=== PATIENT | male | born 1965 | race Caucasian/White ===

== ENCOUNTER 2016-12-08 08:48 | Inpatient (IN) | payer MEDICAID ==
[2016-12-08] VITALS (13 sets, daily range): BP systolic 117–181; BP diastolic 60–91; PULSE 87–114; RESP 18–20; Ht 167.6 cm; Wt 98.5 kg
[~2016-12-08] VITALS: Ht 167.6 cm; Wt 98.5 kg
[2016-12-08] MEDS ORDERED: NITROGLYCERIN 2% 1 GM OINT PKT TD STA (09:08)
[2016-12-08] MEDS ORDERED: FUROSEMIDE 40 MG INJ IV STA (09:08)
[2016-12-08] MEDS ORDERED: ALBUTEROL 0.5% (NEB) 2.5 MG/0.5 ML AMP INH STA (09:08)
[2016-12-08 09:35] LABS: BASOPHILS % 0.4 % (0.0-2.0); EOSINOPHILS # 0.1 10^3/ul (0.0-0.5); EOSINOPHILS % 1.5 % (0.0-7.0); HEMATOCRIT 30.8 % (42.0-52.0); HEMOGLOBIN 10.6 g/dl (14.0-18.0); LYMPHOCYTES # 0.8 10^3/ul (0.8-2.9); LYMPHOCYTES % 12.5 % (15.0-51.0); MEAN CORPUSCULAR HEMOGLOBIN 30.2 pg (29.0-33.0); MEAN CORPUSCULAR HGB CONC 34.4 g/dl (32.0-37.0); MEAN CORPUSCULAR VOLUME 87.7 fl (82.0-101.0); MEAN PLATELET VOLUME 9.4 fl (7.4-10.4); MONOCYTE # 0.5 10^3/ul (0.3-0.9); MONOCYTES % 6.8 % (0.0-11.0); NEUTROPHIL # 5.3 10^3/ul (1.6-7.5); NEUTROPHILS % 78.7 % (39.0-77.0); PLATELET COUNT 201 10^3/UL (140-415); RED BLOOD COUNT 3.51 10^6/ul (4.70-6.10); RED CELL DISTRIBUTION WIDTH 13.2 % (11.5-14.5); WHITE BLOOD COUNT 6.7 10^3/ul (4.8-10.8)
--- NOTE | 2016-12-08 09:36 | RADRPT ---
PROCEDURE: Chest Radiograph. CLINICAL INDICATION: Shortness of breath TECHNIQUE: Single frontal chest radiograph. COMPARISON: None available FINDINGS: The heart is magnified and may be enlarged. There is mild central vascular congestion. Interstitia l opacities are nonspecific and may represent pulmonary edema, chronic lung changes, or interstitial infiltrates. No infiltrate or effusion is seen. The bones are intact. IMPRESSION: 1. Mild central vascular congestion and possible pulmonary edema. Recommend correlation with CHF. Interstitial infiltrates could also have this appearance. RPTAT: KK .Malick Levy MD, MD Date Time Electronically viewed and signed by .Malick Levy MD, MD on 12/08/2016 09:36 .B/
[2016-12-08 09:53] LABS: INR 0.98; PARTIAL THROMBOPLASTIN TIME 29.5 Sec (25.0-35.0)
[2016-12-08 09:58] LABS: CALCIUM 8.2 mg/dl (8.4-10.2); CREATININE 9.36 mg/dl (0.61-1.24); POTASSIUM 5.4 mmol/L (3.5-5.1)
--- NOTE | 2016-12-08 10:02 | ERA ---
ER Documentation Chief Complaint Date/Time DATE: 12/08/16 TIME: 10:02 Chief Complaint SOB, DIALYSIS YESTERDAY HPI 51-year-old male diabetic, hypertensive, hyperlipidemic with history of end- stage renal disease on dialysis, M/W/F, dialyzed yesterday ambulatory to the ED complaining of increased shortness of breath, orthopnea and exertional dyspnea since yesterday. Mild, chronic lower extremity swelling but no calf pain. Denies chest pain or palpitations. No cough or hemoptysis. No abdominal pain, nausea or vomiting. No fevers or chills. Campus Supervisor: Dr Bauer. ROS All systems reviewed and are negative except as per history of present illness. Medications Home Meds Reported Medications Furosemide* (Furosemide*) 20 Mg Tablet, 20 MG PO BID, #30 TAB 12/08/16 Gabapentin* (Gabapentin*) 100 Mg Capsule, 100 MG PO BID, #90 CAP 12/08/16 Lisinopril* (Lisinopril*) 20 Mg Tablet, 20 MG PO DAILY, #30 TAB 12/08/16 Sevelamer Hcl* (Renagel*) 800 Mg Tablet, 800 MG PO WITH MEALS, TAB 12/08/16 Calcium Acetate (Calcium Acetate) 667 Mg Tablet, 667 MG PO WITH MEALS, #30 TAB 12/08/16 Calcium Acetate* (Calcium Acetate*) 667 Mg Capsule, 1334 MG PO WITH MEALS, #60 CAP 12/08/16 Nifedipine* (Nifedipine ER*) 30 Mg Tablet.sa, 30 MG PO DAILY, TAB.SA 12/08/16 Metoprolol Succinate* (Toprol XL*) 25 Mg Tab.sr.24h, 25 MG PO BID, #30 TAB 12/08/16 Allergies Allergies: Coded Allergies: No Known Allergy (Unverified , 12/08/16) PMhx/Soc Reviewed in chart. As per HPI. History of Surgery: Yes (AV shunt left upper extremity) Hx Neurological Disorder: No Hx Respiratory Disorders: No Hx Cardiac Disorders: Yes (Hypertension) Hx Psychiatric Problems: No Hx Miscellaneous Medical Probl: Yes (End-stage renal disease on dialysis, diabetes, dyslipidemia) Hx Alcohol Use: No Hx Substance Use: No Hx Tobacco Use: No Smoking Status: Never smoker FmHx Diabetes but no stroke or cancer Physical Exam Vitals Vital Signs Date Time Temp Pulse Resp B/P Pulse Ox O2 Delivery O2 Flow Rate FiO2 12/08/16 11:04 82 18 174/86 96 Room Air 12/08/16 11:00 114 12/08/16 11:00 112 18 12/08/16 09:36 89 18 96 21 12/08/16 09:05 86 18 192/95 92 Room Air 12/08/16 08:50 98.1 86 18 203/93 92 Physical Exam Const: Alert, moderate respiratory distress Head: Atraumatic Eyes: Normal Conjunctiva ENT: Normal External Ears, Nose and Mouth. Neck: Full range of motion. JVD. Resp: Breath sounds diminished with crackles at the bases. Cardio: Regular rate and rhythm, no murmurs Abd: Soft, non tender, mild distention. Normal bowel sounds. No rebound or guarding. No masses or abnormal pulsations. Skin: No petechiae or rashes Back: No midline or flank tenderness Ext: No cyanosis. 1+ pitting edema bilateral lower extremities Neur: Awake and alert. No focal deficit observed Psych: Normal Mood and Affect Result Diagram: 12/08/1623 12/08/16 0923 Results 24 hrs Laboratory Tests Test 12/08/16 09:23 White Blood Count 6.710^3/ul Red Blood Count 3.5110^6/ul Hemoglobin 10.6g/dl Hematocrit 30.8% Mean Corpuscular Volume 87.7fl Mean Corpuscular Hemoglobin 30.2pg Mean Corpuscular Hemoglobin Concent 34.4g/dl Red Cell Distribution Width 13.2% Platelet Count 71154^3/UL Mean Platelet Volume 9.4fl Neutrophils % 78.7% Lymphocytes % 12.5% Monocytes % 6.8% Eosinophils % 1.5% Basophils % 0.4% Nucleated Red Blood Cells % 0.0/100WBC Neutrophils # 5.310^3/ul Lymphocytes # 0.810^3/ul Monocytes # 0.510^3/ul Eosinophils # 0.110^3/ul Basophils # 0.010^3/ul Nucleated Red Blood Cells # 0.010^3/ul Prothrombin Time 13.0Sec Prothrombin Time Ratio 1.0 INR International Normalized Ratio 0.98 Activated Partial Thromboplast Time 29.5Sec Sodium Level 138mmol/L Potassium Level 5.4mmol/L Chloride Level 88mmol/L Carbon Dioxide Level 32mmol/L Anion Gap 23 Blood Urea Nitrogen 37mg/dl Creatinine 9.36mg/dl Glucose Level 403mg/dl Hemoglobin A1c 12.3% Calcium Level 8.2mg/dl Troponin I 0.016ng/ml Current Medications Medications (Trade) Dose Ordered Sig/Inna Route PRN Reason Start Time Stop Time Status Last Admin Dose Admin Albuterol (Proventil 0.5% (Neb)) 15 mg ONCE STAT INH 12/08/16 09:08 12/08/16 09:16 DC 12/08/16 09:32 Nitroglycerin (Nitroglycerin 2% Oint) 1 inch ONCE STAT TD 12/08/16 09:08 12/08/16 09:16 DC 12/08/16 09:32 Furosemide (Lasix) 40 mg ONCE STAT IV 12/08/16 09:08 12/08/16 09:16 DC 12/08/16 09:32 Captopril (Capoten) 12.5 mg ONCE STAT PO 12/08/16 09:08 12/08/16 09:16 DC 12/08/16 10:28 Ondansetron HCl (Zofran Inj) 4 mg ER BRIDGE PRN IV NAUSEA AND/OR VOMITING 12/08/16 10:30 12/08/16 11:18 DC Acetaminophen (Tylenol Tab) 650 mg ER BRIDGE PRN PO MILD PAIN/FEVER 12/08/16 10:30 12/08/16 11:18 DC Insulin Human Lispro (Humalog) 10 unit ONCE STAT SC 12/08/16 10:34 12/08/16 10:35 DC IV Flush (NS 3 ml) 3 ml PER PROTOCOL IV 12/08/16 11:00 Ondansetron HCl (Zofran Inj) 4 mg Q6H PRN IV NAUSEA AND/OR VOMITING 12/08/16 11:00 Acetaminophen (Tylenol Tab) 650 mg Q6H PRN PO PAIN LEVEL 1-3 OR FEVER 12/08/16 11:00 Acetaminophen (Tylenol Supp) 650 mg Q6H PRN [place] PAIN LEVEL 1-3 OR FEVER 12/08/16 11:00 Acetaminophen/ Hydrocodone Bitart ([place] (5/325)) 1 tab Q6H PRN PO MODERATE PAIN LEVEL 4-6 12/08/16 11:00 Acetaminophen/ Hydrocodone Bitart ([place] (5/325)) 2 tab Q6H PRN PO SEVERE PAIN LEVEL 7-10 12/08/16 11:00 Morphine Sulfate (morphine) 2 mg Q4H PRN IV SEVERE PAIN LEVEL 7-10 12/08/16 11:00 Docusate Sodium (Colace) 100 mg Q12H PRN PO CONSTIPATION 12/08/16 11:00 Magnesium Hydroxide (Milk Of Mag) 30 ml DAILY PRN PO CONSTIPATION 12/08/16 11:00 Bisacodyl (Dulcolax Supp) 10 mg DAILY PRN [place] CONSTIPATION 12/08/16 11:00 Miscellaneous Information (* Miscellaneous Pharmacy Order) Discontinue current oral sulfonylur... ONCE ONCE XX 12/08/16 11:00 12/08/16 11:10 DC Insulin Glargine (Lantus) 20 unit DAILY@08 SC 12/08/16 11:00 Miscellaneous Information (* Miscellaneous Pharmacy Order) HYPOGLYCEMIA PROTOCOL w... ONCE ONCE XX 12/08/16 11:00 12/08/16 11:11 DC Miscellaneous Information (* Miscellaneous Pharmacy Order) Discontinue all previ... ONCE ONCE XX 12/08/16 11:00 12/08/16 11:11 DC EKG: Time: 09:32. Sinus rhythm. Ventricular rate 80, normal NM and QRS intervals. No acute ST segment elevation or depression. No axis deviation or ectopy. EP Impression: Normal EKG IMAGING: PROCEDURE: Chest Radiograph. CLINICAL INDICATION: Shortness of breath TECHNIQUE: Single frontal chest radiograph. COMPARISON: None available FINDINGS: The heart is magnified and may be enlarged. There is mild central vascular congestion. Interstitial opacities are nonspecific and may represent pulmonary edema, chronic lung changes, or interstitial infiltrates. No infiltrate or effusion is seen. The bones are intact. IMPRESSION: 1. Mild central vascular congestion and possible pulmonary edema. Recommend correlation with CHF. Interstitial infiltrates could also have this appearance. RPTAT: KK .Malick Levy MD, Date Time Electronically viewed and signed by .Malick Levy MD, on 2016 09:36 .B/ Procedures/MDM DOCUMENTS REVIEWED: ED nurse, no prior records available ED COURSE: Supplemental oxygen. Nitropaste 1 inch. Captopril 12.5 mg orally. Lasix 40 mg IV. Nebulized albuterol 15 mg. NovoLog 10 mg subcq REEXAMINATION/REEVALUATION: Time: 10:15. Doing well. No dyspnea at rest. MEDICAL DECISION MAKIN-year-old male diabetic, hypertensive, hyperlipidemic with history of end-stage renal disease on dialysis, M/W/F, dialyzed yesterday ambulatory to the ED complaining of increased shortness of breath, orthopnea and exertional dyspnea since yesterday. Patient presents with pulmonary vascular congestion and volume overload despite being dialyzed yesterday. Preload, afterload reduction and diuretics given. Hyperglycemia with diabetes out of control but no DKA treated with subcutaneous insulin. Hyperkalemia without EKG changes treated with nebulized beta agonist. Chronic anemia. Patient will be admitted to telemetry for emergent dialysis, further evaluation and management. Critical Care Statement: Due to the high probability of sudden clinically significant hemodynamic, cardiovascular and neurologic deterioration, this patient with acute dyspnea due to volume overload and pulmonary edema, hyperkalemia and diabetes out of control required the highest level of my preparedness for sudden, emergent intervention. I provided critical care services, which included extensive review of previous medical records, medication orders, frequent reevaluations of the patients condition and response to treatment, ordering of tests, interpretation of relevant clinical data, and discussing the case with the admitting physician, Dr Coronado. Total critical care time associated with the care of this patient, not including other separately reportable procedures: 35 minutes. Counseled patient and family regarding diagnosis, diagnostic results and plan for admission. CALLS/CONSULTS: Time 10:10, Dr. Coronado, Recommends admission to telemetry for urgent dialysis. PATIENT CARE TRANSITIONED: Time: 10:15, Dr. Coronado. Departure Diagnosis: Primary Impression: Acute dyspnea Additional Impressions: Pulmonary edema Qualified Code: J81.0 - Acute pulmonary edema Volume overload Qualified Code: E87.79 - Other hypervolemia Hyperkalemia Diabetes mellitus out of control Qualified Code: E11.65 - Uncontrolled type 2 diabetes mellitus without complication, with long-term current use of insulin End stage renal disease on dialysis Hypertension Qualified Code: I10 - Essential hypertension Condition: Serious ANUJA CRONIN MD Dec 08, 2016 10:02
[2016-12-08 10:09] LABS: TROPONIN-I 0.016 ng/ml (0.00-0.12)
[2016-12-08] MEDS ORDERED: ONDANSETRON 4 MG INJ IV PRN ×2 (10:30→11:00)
[2016-12-08] MEDS ORDERED: ACETAMINOPHEN 325 MG TAB PO PRN ×2 (10:30→11:00)
[2016-12-08] MEDS ORDERED: INSULIN LISPRO 100 UNIT/ML VIAL SC STA (10:34)
[2016-12-08] MEDS ORDERED: INSULIN GLARGINE [LANtus] 3 ML PEN SC SCH (11:00)
[2016-12-08] MEDS ORDERED: morphine 4 MG/ML VIAL IV PRN (11:00)
[2016-12-08] MEDS ORDERED: MAGNESIUM HYDROXIDE 30ML CUP PO PRN (11:00)
[2016-12-08] MEDS ORDERED: HYDROCODONE/APAP (5/325) TAB PO PRN ×2 (11:00)
[2016-12-08] MEDS ORDERED: HYPOGLYCEMIA PROTOCOL when Glucose is <70 mg/dL or symptomatic <90 mg/dL. XX ONE (11:00)
[2016-12-08] MEDS ORDERED: NACL 0.9% 3 ML SYG IV SCH (11:00)
[2016-12-08] MEDS ORDERED: ACETAMINOPHEN 650 MG SUPP PR PRN (11:00)
[2016-12-08] MEDS ORDERED: BISACODYL 10 MG SUPP PR PRN (11:00)
[2016-12-08] MEDS ORDERED: DOCUSATE SODIUM 100 MG CAP PO PRN (11:00)
[2016-12-08] MEDS ORDERED: Discontinue current oral sulfonylureas (glyburide, glipizide, and/or glimepiride) prior to XX ONE (11:00)
[2016-12-08] MEDS ORDERED: GLUCOSE GEL 15 GRAM TUBE PO PRN ×2 (11:30)
[2016-12-08] MEDS ORDERED: GLUCAGON 1 MG INJ IM PRN (11:30)
[2016-12-08] MEDS ORDERED: GLUCOSE GEL 15 GRAM TUBE BUCCAL PRN (11:30)
[2016-12-08] MEDS ORDERED: DEXTROSE 50% 50 ML SYRINGE IV PRN ×2 (11:30)
[2016-12-08] MEDS ORDERED: METO25TA7 PO (12:37)
[2016-12-08] MEDS ORDERED: NIFE30TA60 PO (12:37)
[2016-12-08] MEDS ORDERED: FURO20TA3 PO (12:37)
[2016-12-08] MEDS ORDERED: SEVE800T10 PO (12:37)
[2016-12-08] MEDS ORDERED: CALC667C PO (12:37)
[2016-12-08] MEDS ORDERED: CALC667T PO (12:37)
[2016-12-08] MEDS ORDERED: GABA100C14 PO (12:37)
[2016-12-08] MEDS ORDERED: LISI20TA11 PO (12:37)
[2016-12-08] MEDS: INSULIN ASPART [NOVOLOG] 3 ML PEN SC SCH ×5 (13:01→20:23)
[2016-12-08] MEDS: PANTOPRAZOLE 40 MG INJ IV SCH (13:12)
--- NOTE | 2016-12-08 15:36 | CONS ---
Date/Time of Note Date/Time of Note DATE: 12/08/16 TIME: 15:34 Assessment/Plan Assessment/Plan Chief Complaint/Hosp Course A/P ESRD HTN HYPERGLYCEMIA HYPERKALEMIA FLUID OVERLOAD PLAN HD Problems: Consultation Date/Type/Reason Admit Date/Time Dec 08, 2016 at 11:04 Initial Consult Date Type of Consultation: RENAL 24 HR Interval Summary Constitutional: other (SOB+) Exam/Review of Systems Vital Signs Vitals Vital Signs Date Time Temp Pulse Resp B/P Pulse Ox O2 Delivery O2 Flow Rate FiO2 12/08/16 12:30 105 12/08/16 11:04 18 174/86 96 Room Air 12/08/16 09:36 21 12/08/16 08:50 98.1 Exam Constitutional: alert, oriented, well developed Head: atraumatic, normocephalic Eyes: EOMI Neck: non-tender, supple Respiratory: crackles/rales, diminished breath sounds Cardiovascular: nl pulses, regular rate and rhythm Gastrointestinal: nl liver, spleen, non-tender, soft Extremities: edema (+) Neurological: SHEEP HERDER II-XII intact, nl mental status, nl speech Results Result Diagram: 12/08/1623 12/08/16 0923 Results 24 hrs Laboratory Tests Test 12/08/16 09:23 12/08/16 13:01 White Blood Count 6.7 Red Blood Count 3.51 L Hemoglobin 10.6 L Hematocrit 30.8 L Mean Corpuscular Volume 87.7 Mean Corpuscular Hemoglobin 30.2 Mean Corpuscular Hemoglobin Concent 34.4 Red Cell Distribution Width 13.2 Platelet Count 201 Mean Platelet Volume 9.4 Neutrophils % 78.7 H Lymphocytes % 12.5 L Monocytes % 6.8 Eosinophils % 1.5 Basophils % 0.4 Nucleated Red Blood Cells % 0.0 Neutrophils # 5.3 Lymphocytes # 0.8 Monocytes # 0.5 Eosinophils # 0.1 Basophils # 0.0 Nucleated Red Blood Cells # 0.0 Prothrombin Time 13.0 Prothrombin Time Ratio 1.0 INR International Normalized Ratio 0.98 Activated Partial Thromboplast Time 29.5 Sodium Level 138 Potassium Level 5.4 H Chloride Level 88 L Carbon Dioxide Level 32 H Anion Gap 23 H Blood Urea Nitrogen 37 H Creatinine 9.36 H Glucose Level 403 *H Hemoglobin A1c 12.3 H Calcium Level 8.2 L Troponin I 0.016 Bedside Glucose 282 H Medications Medications Current Medications Ondansetron HCl (Zofran Inj) 4 mg Q6H PRN IV NAUSEA AND/OR VOMITING; Start 12/08 at 11:00 Acetaminophen (Tylenol Tab) 650 mg Q6H PRN PO PAIN LEVEL 1-3 OR FEVER; Start at 11:00 Acetaminophen (Tylenol Supp) 650 mg Q6H PRN [place] PAIN LEVEL 1-3 OR FEVER; Start 12/08/16 at 11:00 Acetaminophen/ Hydrocodone Bitart ([place] (5/325)) 1 tab Q6H PRN PO MODERATE PAIN LEVEL 4-6; Start 12/08/16 at 11:00 Acetaminophen/ Hydrocodone Bitart ([place] (5/325)) 2 tab Q6H PRN PO SEVERE PAIN LEVEL 7-10; Start 12/08/16 at 11:00 Morphine Sulfate (morphine) 2 mg Q4H PRN IV SEVERE PAIN LEVEL 7-10; Start at 11:00 Docusate Sodium (Colace) 100 mg Q12H PRN PO CONSTIPATION; Start 12/08/16 at 11: 00 Magnesium Hydroxide (Milk Of Mag) 30 ml DAILY PRN PO CONSTIPATION; Start at 11:00 Bisacodyl (Dulcolax Supp) 10 mg DAILY PRN [place] CONSTIPATION; Start 12/08/16 at 11: 00 Pantoprazole (Protonix Iv) 40 mg DAILY@06 IV Last administered on 12/08/16t 13: 12; Admin Dose 40 MG; Start 12/08/16 at 11:45 Diagnostic Test (Pha) (Accu-Chek) 1 ea 02 XX ; Start 12/09/16 at 02:00 Insulin Glargine (Lantus) 20 unit DAILY@08 SC ; Start 12/08/16 at 11:00 Miscellaneous Information 1 ea NOTE XX ; Start 12/08/16 at 11:30 Glucose (Glutose) 15 gm Q15M PRN PO DECREASED GLUCOSE; Start 12/08/16 at 11:30 Glucose (Glutose) 22.5 gm Q15M PRN PO DECREASED GLUCOSE; Start 12/08/16 at 11:30 Dextrose (D50w Syringe) 25 ml Q15M PRN IV DECREASED GLUCOSE; Start 12/08/16 at 11:30 Dextrose (D50w Syringe) 50 ml Q15M PRN IV DECREASED GLUCOSE; Start 12/08/16 at 11:30 Glucagon (Glucagen) 1 mg Q15M PRN IM DECREASED GLUCOSE; Start 12/08/16 at 11:30 Glucose (Glutose) 15 gm Q15M PRN BUCCAL DECREASED GLUCOSE; Start 12/08/16 at 11: 30 SULMA EASTMAN MD Dec 08, 2016 15:36
--- NOTE | 2016-12-08 16:05 | HP ---
Date/Time of Note Date/Time of Note DATE: 12/08/16 TIME: 15:59 Assessment/Plan VTE Prophylaxis VTE Prophylaxis Intervention: SCD's Assessment/Plan Chief Complaint/Hosp Course Impression and plan 1. Shortness of breath secondary to fluid overload. Patient with ESRD. will get c 40a crew chief to follow. Dialysis per c 40a crew chief. 2. End-stage renal disease. Monitor renal panel and for electrolyte disturbance. Continue on dialysis per c 40a crew chief recommendations. 3. Uncontrolled diabetes. Patient noted with A1c of 12.3. Will get senior engineering tech to follow. Will place on basal insulin as well as corrective and sliding scale. Will adjust as needed. 4. Essential hypertension. Will provide with antihypertensives and adjust needed 5. Anemia of chronic disease. H&H remained stable. Monitor CBC. Admission process 40 minutes Discussed plan of care with Dr. Coronado Problems: HPI/ROS Admit Date/Time Admit Date/Time Dec 08, 2016 at 11:04 Hx of Present Illness This is a 51-year-old male with history of end stage renal disease on dialysis on Wednesday and Wednesday, essential hypertension, diabetes, suspected dyslipidemia, who came to [facility] due to reports of shortness of breath. According to the patient he did receive his regular dialysis on December 07, 2016 on Wednesday. Reports that typically he gets roughly 4 L of fluid removed however yesterday he only had 3.1 L of fluid removed. Thereafter he subsequently became more short of breath. He denies any persistent chest pain. He subsequently went to [facility] for further evaluation. Upon examination he was tachycardic with heart rate 110. He also had high blood pressure as high as 203/93. He was also noted to be anemic, normocytic normochromic. He also had elevation in potassium as high as 5.4. Also noted with renal insufficiency. Basic metabolic panel and glucose as high as 403. Additionally did get A1c which was 12.3 and he had a troponin which was negative. Patient reportedly received dialysis this morning and reports no further chest pain shortness of breath. We will evaluate him for the aformentiond issues. ROS 12 point review of systems obtained and entirely negative except that mentioned in history of present illness PMH/Family/Social Past Medical History Medical/surgical history end stage renal disease on dialysis on Wednesday and Wednesday, essential hypertension, diabetes, suspected dyslipidemia Family History Significant Family History: no pertinent family hx Social History Alcohol Use: none Smoking Status: Former smoker Drug Use: none, cocaine Exam/Review of Systems Vital Signs Vitals Vital Signs Date Time Temp Pulse Resp B/P Pulse Ox O2 Delivery O2 Flow Rate FiO2 12/08/16 15:43 99.0 96 18 153/73 96 12/08/16 11:04 Room Air 12/08/16 09:36 21 Exam Constitutional: alert, oriented Psych: nl mood/affect Head: normocephalic Eyes: nl conjunctiva Respiratory: clear to auscultation Cardiovascular: regular rate and rhythm Gastrointestinal: soft Musculoskeletal: nl extremities to inspection Neurological: REAMING MACHINE TENDER II-XII intact, nl mental status, nl speech Labs Result Diagram: 12/08/1692212/08/16922 Medications Medications Current Medications Ondansetron HCl (Zofran Inj) 4 mg Q6H PRN IV NAUSEA AND/OR VOMITING; Start 12/08 at 11:00 Acetaminophen (Tylenol Tab) 650 mg Q6H PRN PO PAIN LEVEL 1-3 OR FEVER; Start at 11:00 Acetaminophen (Tylenol Supp) 650 mg Q6H PRN [place] PAIN LEVEL 1-3 OR FEVER; Start 12/08/16 at 11:00 Acetaminophen/ Hydrocodone Bitart ([place] (5/325)) 1 tab Q6H PRN PO MODERATE PAIN LEVEL 4-6; Start 12/08/16 at 11:00 Acetaminophen/ Hydrocodone Bitart ([place] (5/325)) 2 tab Q6H PRN PO SEVERE PAIN LEVEL 7-10; Start 12/08/16 at 11:00 Morphine Sulfate (morphine) 2 mg Q4H PRN IV SEVERE PAIN LEVEL 7-10; Start at 11:00 Docusate Sodium (Colace) 100 mg Q12H PRN PO CONSTIPATION; Start 12/08/16 at 11: 00 Magnesium Hydroxide (Milk Of Mag) 30 ml DAILY PRN PO CONSTIPATION; Start at 11:00 Bisacodyl (Dulcolax Supp) 10 mg DAILY PRN [place] CONSTIPATION; Start 12/08/16 at 11: 00 Pantoprazole (Protonix Iv) 40 mg DAILY@06 IV Last administered on 12/08/16t 13: 12; Admin Dose 40 MG; Start 12/08/16 at 11:45 Diagnostic Test (Pha) (Accu-Chek) 1 ea 02 XX ; Start 12/09/16 at 02:00 Insulin Glargine (Lantus) 20 unit DAILY@08 SC ; Start 12/08/16 at 11:00 Miscellaneous Information 1 ea NOTE XX ; Start 12/08/16 at 11:30 Glucose (Glutose) 15 gm Q15M PRN PO DECREASED GLUCOSE; Start 12/08/16 at 11:30 Glucose (Glutose) 22.5 gm Q15M PRN PO DECREASED GLUCOSE; Start 12/08/16 at 11:30 Dextrose (D50w Syringe) 25 ml Q15M PRN IV DECREASED GLUCOSE; Start 12/08/16 at 11:30 Dextrose (D50w Syringe) 50 ml Q15M PRN IV DECREASED GLUCOSE; Start 12/08/16 at 11:30 Glucagon (Glucagen) 1 mg Q15M PRN IM DECREASED GLUCOSE; Start 12/08/16 at 11:30 Glucose (Glutose) 15 gm Q15M PRN BUCCAL DECREASED GLUCOSE; Start 12/08/16 at 11: 30 Furosemide (Lasix) 20 mg BID PO ; Start 12/08/16 at 21:00; Status UNV Gabapentin (Neurontin) 100 mg BID PO ; Start 12/08/16 at 21:00; Status UNV Lisinopril (Zestril) 20 mg DAILY PO ; Start 12/09/16 at 09:00; Status UNV Metoprolol Succinate (Toprol Xl) 25 mg BID PO ; Start 12/08/16 at 21:00; Status UNV Nifedipine (Procardia Xl) 30 mg DAILY PO ; Start 12/09/16 at 09:00; Status UNV ROSSY HENDRIX Dec 08, 2016 16:05
[2016-12-08] MEDS ORDERED: INSULIN GLARGINE [LANtus] 3 ML PEN SC ONE (16:30)
[2016-12-08] MEDS: SEVELAMER 800 MG TAB PO SCH (17:17)
[2016-12-08] MEDS: CALCIUM ACETATE 667 MG CAP PO SCH (17:17)
[2016-12-08] MEDS: INSULIN GLARGINE [LANtus] 3 ML PEN SC SCH (17:21)
[2016-12-08] MEDS: FUROSEMIDE 20 MG TAB PO SCH (17:28)
--- NOTE | 2016-12-08 17:51 | QN ---
Documentation Comment [id number] WILLIAMSON MD Dec 08, 2016 17:51
[2016-12-08] MEDS ORDERED: SEVELAMER 800 MG TAB PO SCH (18:05)
[2016-12-08] MEDS ORDERED: CALCIUM ACETATE 667 MG CAP PO SCH ×2 (18:05)
[2016-12-08] MEDS: GABAPENTIN 100 MG CAP PO SCH (20:20)
[2016-12-08] MEDS: METOPROLOL (XL) 25 MG TAB PO SCH (20:21)
[2016-12-09] VITALS (13 sets, daily range): BP systolic 132–181; BP diastolic 73–93; PULSE 76–95; RESP 16–19
[2016-12-09] MEDS ORDERED: ACCU-CHEK XX SCH (02:00)
[2016-12-09] MEDS: ACCU-CHEK XX SCH (02:42)
[2016-12-09] MEDS: PANTOPRAZOLE 40 MG INJ IV SCH (05:25)
[2016-12-09] MEDS: FUROSEMIDE 20 MG TAB PO SCH ×2 (05:25→17:14)
[2016-12-09] MEDS ORDERED: hydrALAzine 20 MG INJ IV PRN (06:30)
[2016-12-09 07:49] LABS: ALBUMIN 3.9 g/dl (3.3-4.9); ALBUMIN/GLOBULIN RATIO 1.21; BILIRUBIN,INDIRECT 0.2 mg/dl (0-1.1); BILIRUBIN,TOTAL 0.2 mg/dl (0.2-1.3); CALCIUM 8.4 mg/dl (8.4-10.2); CHOL/HDL RATIO 5.3 RATIO; CREATININE 8.69 mg/dl (0.61-1.24); PHOSPHORUS 6.2 mg/dl (2.5-4.9); POTASSIUM 4.2 mmol/L (3.5-5.1); TOTAL PROTEIN 7.1 g/dl (6.1-8.1)
[2016-12-09 08:20] LABS: THYROID STIMULATING HORMONE 0.785 MIU/L (0.465-4.680)
[2016-12-09] MEDS: CALCIUM ACETATE 667 MG CAP PO SCH ×3 (08:27→17:15)
[2016-12-09] MEDS: METOPROLOL (XL) 25 MG TAB PO SCH ×2 (08:28→20:11)
[2016-12-09] MEDS: NIFEdipine (XL) 30 MG TAB PO SCH (08:28)
[2016-12-09] MEDS: GABAPENTIN 100 MG CAP PO SCH ×2 (08:28→20:10)
[2016-12-09] MEDS: SEVELAMER 800 MG TAB PO SCH ×3 (08:28→17:15)
[2016-12-09] MEDS: LISINOPRIL 20 MG TAB PO SCH (08:28)
[2016-12-09] MEDS: INSULIN ASPART [NOVOLOG] 3 ML PEN SC SCH ×7 (08:31→20:06)
[2016-12-09] MEDS: INSULIN GLARGINE [LANtus] 3 ML PEN SC SCH (08:37)
[2016-12-09] MEDS ORDERED: NOVO3I SC (09:24)
[2016-12-09] MEDS ORDERED: LANT3I SC (09:24)
--- NOTE | 2016-12-09 09:28 | PDOCDIS ---
Discharge Instructions DIAGNOSIS Discharge Diagnosis 1. Dyspnea secondary to fluid overload with underlying diagnosis of end-stage renal disease 2. End-stage renal disease 3. Uncontrolled diabetes with A1c of 12.3 4. Essential hypertension 5. Anemia of chronic disease HOME CARE INSTRUCTIONS: Special Diet: 1. Carbohydrate controlled 2. Low-fat low-cholesterol FOLLOW UP/APPOINTMENTS Follow-up Plan 1. Follow-up with your dialysis center for regular dialysis on Wednesday, Wednesday, Wednesday ROSSY HENDRIX Dec 09, 2016 09:28
--- NOTE | 2016-12-09 10:20 | CONS ---
DATE OF ADMISSION: 12/08/2016 DATE OF CONSULTATION: 12/08/2016 HISTORY OF PRESENT ILLNESS: The patient is a 51-year-old male with a history of ESRD, history of diabetes mellitus, hypertension, AV fistula in the left upper extremity, history of Permacath placement and removal. Patient presented with short of breath, noted to have hypokalemia, uncontrolled diabetes mellitus. Hematocrit 30.8, potassium 5.4, sodium ] BUN 37, creatinine , and patient is admitted for further management. PAST MEDICAL HISTORY: ESRD, hypertension, diabetes mellitus, AV fistula in the left upper extremity. ALLERGIES: NEGATIVE. FAMILY HISTORY: Negative. SOCIAL HISTORY: Denies. MEDICATION: Patient is on: 1. PhosLo. 2. Calcium. 3. Lasix. 4. Gabapentin. 5. Lisinopril. 6. Metoprolol. 7. Nifedipine. REVIEW OF SYSTEMS: HEENT: Unremarkable. RESPIRATORY: Short of breath. CVS: sob]. EXTREMITIES: No swelling. LAWNMOWER REPAIR MECHANIC: Unremarkable. PHYSICAL EXAMINATION: GENERAL: Patient is awake, alert. VITAL SIGNS: Blood pressure 152/73. HEENT: Head is atraumatic, normocephalic. Pupils are reactive to light. NECK: Supple. No JVD. LUNGS: Basilar rales noted. CVS: S1, S2 normal. ABDOMEN: Soft, obese. Bowel sounds ]. EXTREMITIES: No cyanosis, clubbing or edema. LAWNMOWER REPAIR MECHANIC: Patient is awake, alert with no focal deficits. LABORATORY: Hematocrit 30.8, white count 5.4. IMPRESSION: 1. The patient has endstage renal disease. 2. Fluid overload. 3. Hyperkalemia 4. pul edema]. 5. Atherosclerotic heart disease. 6. Dyslipidemia. 7. Obesity. PLAN: Continue on renal diet. Hemodialysis has been ordered. Orders were done. Sliding scale per family care team. Dictated By: Hitesh Butcher MD /fiona/andrea /Document#: [id number] FADI
--- NOTE | 2016-12-09 14:15 | RADRPT ---
Echocardiogram Report Patient Name: SPRING GODOY Gender: Male Date: 1965 Study Date: 08-Dec-2016 Head Of Science: Anna Truong [facility] Location: 5560 Ref. Physician: ROSSY HENDRIX Quality: Good Procedures: Transthoracic echocardiogram with complete 2D, M-Mode, and doppler examination. Indications: Congestive Heart Failure. 2D/M Mode Doppler Measurement Value Normal Ranges Measurement Value Normal Ranges LVIDd 2D 4.2 3.5 - 5.6 cm AV Peak Dennis 1.7 m/sec LVIDs 2D 3.6 2.1 - 4.1 cm AV Peak PG 10.9 mmHg LVPWd 2D 1.2 0.6 - 1.1 cm LVOT Peak Dennis 1.1 m/sec IVSd 2D 1.3 0.6 - 1.1 cm LVOT Peak PG 4.8 mmHg AoR Diam 2D 2.6 2.0 - 3.7 cm MV E Peak Dennis 0.8 m/sec EDV 2D 77.5 cm3 MV A Peak Dennis 1.0 m/sec ESV 2D 45.9 cm3 MV E/A 0.8 LA Dimen 2D 3.6 2.3 - 4.0 cm MV Decel Time 183 msec MV Decel [place] 4 MV E/A 0.8 Findings Left Ventricle: Normal left ventricular systolic function. Normal left ventricular cavity size. Normal left ventricular wall thickness. Mild concentric left ventricular hypertrophy. Ejection fraction is visually estimated at 5560 %. Tissue Doppler/Mitral Doppler indices are consistent with impaired relaxation (Stage I diastolic dysfunction). Right Ventricle: Normal right ventricular size. Normal right ventricular systolic function. Left Atrium: The left atrium is normal in size. Right Atrium: The right atrium is normal in size. Mitral Valve: Mitral valve leaflets appear mildly thickened. Moderate mitral annular calcification. Mild mitral valve regurgitation. Aortic Valve: No significant aortic stenosis or insufficiency. Aortic cusps appear mildly calcified. Tricuspid Valve: Normal appearance of the tricuspid valve. Unable to obtain RVSP due to minimal presence of tricuspid regurgitation. Pulmonic Valve: Normal pulmonic valve appearance. Pericardium: Normal pericardium with no significant pericardial effusion. Aorta: Normal aortic root. IVC: Normal size and normal respiratory collapse consistent with normal right atrial pressure. Conclusions 1.The left ventricle is normal in size and systolic function. 2.Estimated left ventricular ejection fraction of 55-60%. 3.Mild concentric left ventricular hypertrophy. Grade 1 diastolic dysfunction. Electronically Signed By: Stanley Brown 09-Dec-2016 14:14:33 -0700 Patient Name: SPRING GODOY Study Date: 08-Dec-2016 [id number]
--- NOTE | 2016-12-09 18:18 | PN ---
Date/Time of Note Date/Time of Note DATE: 12/09/16 TIME: 18:16 Assessment/Plan VTE Prophylaxis VTE Prophylaxis Intervention: SCD's Lines/Catheters IV [facility] Saline Lock Urinary Cath still in place: No Assessment/Plan Chief Complaint/Hosp Course Impression and plan 1. Shortness of breath secondary to fluid overload. Patient with ESRD. will get cloth brushing and sueding supervisor to follow. Dialysis per cloth brushing and sueding supervisor. 2. End-stage renal disease. Monitor renal panel and for electrolyte disturbance. Continue on dialysis per cloth brushing and sueding supervisor recommendations. Tentative plan for dialysis again today. 3. Uncontrolled diabetes. Patient noted with A1c of 12.3. Will get community health educator to follow. Will place on basal insulin as well as corrective and sliding scale. Will adjust as needed. Appears to be improving 4. Essential hypertension. Will provide with antihypertensives and adjust needed 5. Anemia of chronic disease. H&H remained stable. Monitor CBC. Disposition and plan: Continue to monitor blood glucose trend. Tentative plan for dialysis today. Anticipate discharge within the next 24 hours if medically stable Discussed plan of care with Dr. Coronado Problems: Subjective 24 Hr Interval Summary Free Text/Dictation Comfortable at present. No reports of shortness of breath Exam/Review of Systems Vital Signs Vitals Vital Signs Date Time Temp Pulse Resp B/P Pulse Ox O2 Delivery O2 Flow Rate FiO2 12/09/16 16:06 78 12/09/16 15:35 98.5 18 132/76 92 12/09/16 05:21 Room Air 12/08/16 09:36 21 Intake and Output 12/08/16 12/08/16 12/09/16 15:00 23:00 07:00 Intake Total 300 ml 520 ml 60 ml Output Total 3500 ml Balance -3200 ml 520 ml 60 ml Exam Constitutional: alert, obese, oriented Head: normocephalic Respiratory: diminished breath sounds Cardiovascular: regular rate and rhythm (At lung bases) Musculoskeletal: nl extremities to inspection Neurological: BRAILLE CODER II-XII intact, nl mental status, nl speech Skin: nl turgor Results Result Diagram: 12/08/16 0923 12/09/16 0655 Results 24 hrs Laboratory Tests Test 12/08/16 20:19 12/09/16 02:23 12/09/16 06:55 12/09/16 08:19 Bedside Glucose 273 H 212 189 Sodium Level 140 Potassium Level 4.2 Chloride Level 88 L Carbon Dioxide Level 31 Anion Gap 25 H Blood Urea Nitrogen 35 H Creatinine 8.69 H Glucose Level 201 # Hemoglobin A1c 11.7 H Calcium Level 8.4 Phosphorus Level 6.2 H Magnesium Level 2.0 Total Bilirubin 0.2 Direct Bilirubin 0.00 Indirect Bilirubin 0.2 Aspartate Amino Transf (AST/SGOT) 12 L Alanine Aminotransferase (ALT/SGPT) 29 Alkaline Phosphatase 92 Total Protein 7.1 Albumin 3.9 Globulin 3.20 Albumin/Globulin Ratio 1.21 Triglycerides Level 263 H Cholesterol Level 193 LDL Cholesterol, Calculated 104 HDL Cholesterol 36 Cholesterol/HDL Ratio 5.3 Thyroid Stimulating Hormone (TSH) 0.785 Free Thyroxine Index 2.15 Thyroxine (T4) 5.5 Triiodothyronine (T3) Uptake 39.0 Test 12/09/16 11:39 12/09/16 17:13 Bedside Glucose 144 107 Medications Medications Current Medications Ondansetron HCl (Zofran Inj) 4 mg Q6H PRN IV NAUSEA AND/OR VOMITING; Start 12/08 at 11:00 Acetaminophen (Tylenol Tab) 650 mg Q6H PRN PO PAIN LEVEL 1-3 OR FEVER; Start at 11:00 Acetaminophen (Tylenol Supp) 650 mg Q6H PRN [place] PAIN LEVEL 1-3 OR FEVER; Start 12/08/16 at 11:00 Acetaminophen/ Hydrocodone Bitart ([place] (5/325)) 1 tab Q6H PRN PO MODERATE PAIN LEVEL 4-6; Start 12/08/16 at 11:00 Acetaminophen/ Hydrocodone Bitart ([place] (5/325)) 2 tab Q6H PRN PO SEVERE PAIN LEVEL 7-10; Start 12/08/16 at 11:00 Morphine Sulfate (morphine) 2 mg Q4H PRN IV SEVERE PAIN LEVEL 7-10; Start at 11:00 Docusate Sodium (Colace) 100 mg Q12H PRN PO CONSTIPATION; Start 12/08/16 at 11: 00 Magnesium Hydroxide (Milk Of Mag) 30 ml DAILY PRN PO CONSTIPATION; Start at 11:00 Bisacodyl (Dulcolax Supp) 10 mg DAILY PRN [place] CONSTIPATION; Start 12/08/16 at 11: 00 Pantoprazole (Protonix Iv) 40 mg DAILY@06 IV Last administered on 12/09/16 05: 25; Admin Dose 40 MG; Start 12/08/16 at 11:45 Diagnostic Test (Pha) (Accu-Chek) 1 ea 02 XX Last administered on 12/09/16 02: 42; Admin Dose 1 EA; Start 12/09/16 at 02:00 Miscellaneous Information 1 ea NOTE XX ; Start 12/08/16 at 11:30 Glucose (Glutose) 15 gm Q15M PRN PO DECREASED GLUCOSE; Start 12/08/16 at 11:30 Glucose (Glutose) 22.5 gm Q15M PRN PO DECREASED GLUCOSE; Start 12/08/16 at 11:30 Dextrose (D50w Syringe) 25 ml Q15M PRN IV DECREASED GLUCOSE; Start 12/08/16 at 11:30 Dextrose (D50w Syringe) 50 ml Q15M PRN IV DECREASED GLUCOSE; Start 12/08/16 at 11:30 Glucagon (Glucagen) 1 mg Q15M PRN IM DECREASED GLUCOSE; Start 12/08/16 at 11:30 Glucose (Glutose) 15 gm Q15M PRN BUCCAL DECREASED GLUCOSE; Start 12/08/16 at 11: 30 Gabapentin (Neurontin) 100 mg BID PO Last administered on 12/09/16 08:28; Admin Dose 100 MG; Start 12/08/16 at 21:00 Lisinopril (Zestril) 20 mg DAILY PO Last administered on 12/09/16 08:28; Admin Dose 20 MG; Start 12/09/16 at 09:00 Metoprolol Succinate (Toprol Xl) 25 mg BID PO Last administered on 12/09/16 08: 28; Admin Dose 25 MG; Start 12/08/16 at 21:00 Nifedipine (Procardia Xl) 30 mg DAILY PO Last administered on 12/09/16 08:28; Admin Dose 30 MG; Start 12/09/16 at 09:00 Insulin Glargine (Lantus) 20 unit DAILY@08 SC Last administered on 12/09/16 08: 37; Admin Dose 20 UNIT; Start 12/08/16 at 17:00 Hydralazine HCl (Apresoline) 10 mg Q4H PRN IV for sbp greater than 160; Start 12/09/16 at 06:30 Atorvastatin Calcium (Lipitor) 20 mg HS PO ; Start 12/09/16 at 21:00 ROSSY HENDRIX Dec 09, 2016 18:18
--- NOTE | 2016-12-09 19:50 | CONS ---
Date/Time of Note Date/Time of Note DATE: 12/09/16 TIME: 19:49 Assessment/Plan Assessment/Plan Chief Complaint/Hosp Course A/P ESRD HTN HYPERGLYCEMIA HYPERKALEMIA BETTER FLUID OVERLOAD PLAN HD Problems: Consultation Date/Type/Reason Admit Date/Time Dec 08, 2016 at 11:04 Type of Consultation: RENAL 24 HR Interval Summary Constitutional: no complaints Exam/Review of Systems Vital Signs Vitals Vital Signs Date Time Temp Pulse Resp B/P Pulse Ox O2 Delivery O2 Flow Rate FiO2 12/09/16 19:22 97.9 81 19 133/76 94 12/09/16 05:21 Room Air 12/08/16 09:36 21 Intake and Output 12/08/16 12/08/16 12/09/16 15:00 23:00 07:00 Intake Total 300 ml 520 ml 60 ml Output Total 3500 ml Balance -3200 ml 520 ml 60 ml Exam Neck: supple Respiratory: clear to auscultation Cardiovascular: regular rate and rhythm Gastrointestinal: bowel sounds, soft Extremities: normal pulses Results Result Diagram: 12/08/16 0923 12/09/16 0655 Results 24 hrs Laboratory Tests Test 12/08/16 20:19 12/09/16 02:23 12/09/16 06:55 12/09/16 08:19 Bedside Glucose 273 H 212 189 Sodium Level 140 Potassium Level 4.2 Chloride Level 88 L Carbon Dioxide Level 31 Anion Gap 25 H Blood Urea Nitrogen 35 H Creatinine 8.69 H Glucose Level 201 # Hemoglobin A1c 11.7 H Calcium Level 8.4 Phosphorus Level 6.2 H Magnesium Level 2.0 Total Bilirubin 0.2 Direct Bilirubin 0.00 Indirect Bilirubin 0.2 Aspartate Amino Transf (AST/SGOT) 12 L Alanine Aminotransferase (ALT/SGPT) 29 Alkaline Phosphatase 92 Total Protein 7.1 Albumin 3.9 Globulin 3.20 Albumin/Globulin Ratio 1.21 Triglycerides Level 263 H Cholesterol Level 193 LDL Cholesterol, Calculated 104 HDL Cholesterol 36 Cholesterol/HDL Ratio 5.3 Thyroid Stimulating Hormone (TSH) 0.785 Free Thyroxine Index 2.15 Thyroxine (T4) 5.5 Triiodothyronine (T3) Uptake 39.0 Test 12/09/16 11:39 12/09/16 17:13 Bedside Glucose 144 107 Medications Medications Current Medications Ondansetron HCl (Zofran Inj) 4 mg Q6H PRN IV NAUSEA AND/OR VOMITING; Start 12/08 at 11:00 Acetaminophen (Tylenol Tab) 650 mg Q6H PRN PO PAIN LEVEL 1-3 OR FEVER; Start at 11:00 Acetaminophen (Tylenol Supp) 650 mg Q6H PRN [place] PAIN LEVEL 1-3 OR FEVER; Start 12/08/16 at 11:00 Acetaminophen/ Hydrocodone Bitart ([place] (5/325)) 1 tab Q6H PRN PO MODERATE PAIN LEVEL 4-6; Start 12/08/16 at 11:00 Acetaminophen/ Hydrocodone Bitart ([place] (5/325)) 2 tab Q6H PRN PO SEVERE PAIN LEVEL 7-10; Start 12/08/16 at 11:00 Morphine Sulfate (morphine) 2 mg Q4H PRN IV SEVERE PAIN LEVEL 7-10; Start at 11:00 Docusate Sodium (Colace) 100 mg Q12H PRN PO CONSTIPATION; Start 12/08/16 at 11: 00 Magnesium Hydroxide (Milk Of Mag) 30 ml DAILY PRN PO CONSTIPATION; Start at 11:00 Bisacodyl (Dulcolax Supp) 10 mg DAILY PRN [place] CONSTIPATION; Start 12/08/16 at 11: 00 Pantoprazole (Protonix Iv) 40 mg DAILY@06 IV Last administered on 12/09/16 05: 25; Admin Dose 40 MG; Start 12/08/16 at 11:45 Diagnostic Test (Pha) (Accu-Chek) 1 ea 02 XX Last administered on 12/09/16 02: 42; Admin Dose 1 EA; Start 12/09/16 at 02:00 Miscellaneous Information 1 ea NOTE XX ; Start 12/08/16 at 11:30 Glucose (Glutose) 15 gm Q15M PRN PO DECREASED GLUCOSE; Start 12/08/16 at 11:30 Glucose (Glutose) 22.5 gm Q15M PRN PO DECREASED GLUCOSE; Start 12/08/16 at 11:30 Dextrose (D50w Syringe) 25 ml Q15M PRN IV DECREASED GLUCOSE; Start 12/08/16 at 11:30 Dextrose (D50w Syringe) 50 ml Q15M PRN IV DECREASED GLUCOSE; Start 12/08/16 at 11:30 Glucagon (Glucagen) 1 mg Q15M PRN IM DECREASED GLUCOSE; Start 12/08/16 at 11:30 Glucose (Glutose) 15 gm Q15M PRN BUCCAL DECREASED GLUCOSE; Start 12/08/16 at 11: 30 Gabapentin (Neurontin) 100 mg BID PO Last administered on 12/09/16 08:28; Admin Dose 100 MG; Start 12/08/16 at 21:00 Lisinopril (Zestril) 20 mg DAILY PO Last administered on 12/09/16 08:28; Admin Dose 20 MG; Start 12/09/16 at 09:00 Metoprolol Succinate (Toprol Xl) 25 mg BID PO Last administered on 12/09/16 08: 28; Admin Dose 25 MG; Start 12/08/16 at 21:00 Nifedipine (Procardia Xl) 30 mg DAILY PO Last administered on 12/09/16 08:28; Admin Dose 30 MG; Start 12/09/16 at 09:00 Insulin Glargine (Lantus) 20 unit DAILY@08 SC Last administered on 12/09/16 08: 37; Admin Dose 20 UNIT; Start 12/08/16 at 17:00 Hydralazine HCl (Apresoline) 10 mg Q4H PRN IV for sbp greater than 160; Start 12/09/16 at 06:30 Atorvastatin Calcium (Lipitor) 20 mg HS PO ; Start 12/09/16 at 21:00 SULMA EASTMAN MD Dec 09, 2016 19:50
[2016-12-09] MEDS ORDERED: ATORVASTATIN 20 MG TAB PO SCH (21:00)
[2016-12-10] VITALS (13 sets, daily range): BP systolic 72–149; BP diastolic 51–115; PULSE 69–90; RESP 19–20
[2016-12-10] MEDS: ACCU-CHEK XX SCH (02:00)
[2016-12-10] MEDS: FUROSEMIDE 20 MG TAB PO SCH (06:00)
[2016-12-10] MEDS: PANTOPRAZOLE 40 MG INJ IV SCH (06:00)
[2016-12-10] MEDS: CALCIUM ACETATE 667 MG CAP PO SCH ×2 (08:33→12:41)
[2016-12-10] MEDS: SEVELAMER 800 MG TAB PO SCH ×2 (08:33→12:41)
[2016-12-10] MEDS: GABAPENTIN 100 MG CAP PO SCH (08:34)
[2016-12-10] MEDS: METOPROLOL (XL) 25 MG TAB PO SCH (08:35)
[2016-12-10] MEDS: LISINOPRIL 20 MG TAB PO SCH (08:35)
[2016-12-10] MEDS: NIFEdipine (XL) 30 MG TAB PO SCH (08:35)
[2016-12-10] MEDS: INSULIN GLARGINE [LANtus] 3 ML PEN SC SCH (08:37)
[2016-12-10] MEDS: INSULIN ASPART [NOVOLOG] 3 ML PEN SC SCH ×4 (08:38→12:42)
[2016-12-10] MEDS ORDERED: LANT3I SC (14:20)
--- NOTE | 2016-12-10 14:22 | DS ---
Date/Time of Note Date/Time of Note DATE: 12/10/16 TIME: 14:20 Discharge Summary Admission/Discharge Info Admit Date/Time Dec 08, 2016 at 11:04 Discharge Date/Time Discharge Diagnosis 1. Dyspnea secondary to fluid overload with underlying diagnosis of end-stage renal disease 2. End-stage renal disease 3. Uncontrolled diabetes with A1c of 12.3 4. Essential hypertension 5. Anemia of chronic disease Hx of Present Illness This is a 51-year-old male with history of end stage renal disease on dialysis on Wednesday and Wednesday, essential hypertension, diabetes, suspected dyslipidemia, who came to [facility] due to reports of shortness of breath. According to the patient he did receive his regular dialysis on December 07, 2016 on Wednesday. Reports that typically he gets roughly 4 L of fluid removed however yesterday he only had 3.1 L of fluid removed. Thereafter he subsequently became more short of breath. He denies any persistent chest pain. He subsequently went to [facility] for further evaluation. Upon examination he was tachycardic with heart rate 110. He also had high blood pressure as high as 203/93. He was also noted to be anemic, normocytic normochromic. He also had elevation in potassium as high as 5.4. Also noted with renal insufficiency. Basic metabolic panel and glucose as high as 403. Additionally did get A1c which was 12.3 and he had a troponin which was negative. Patient reportedly received dialysis this morning and reports no further chest pain shortness of breath. We will evaluate him for the aformentiond issues. Hospital Course This is a 51-year-old male with history of end-stage renal disease with dialysis on Wednesday, Wednesday, Wednesday, essential hypertension, diabetes, dyslipidemia, who came to [facility] due to reports of shortness of breath. According to the patient he did receive his regular dialysis on December 07, 2016 however he reports he typically gets roughly 4 L of fluid removed but only had 3.1 L of fluid removed. Therefore after became short of breath and went to [facility] for further evaluation. He was noted to be hypertensive and tachycardic. His A1c was 12.3. His initial troponin was negative. He was seen by engineer gas pumping station and did receive further dialysis with further fluid removal. He did respond well and did report resolution of shortness of breath. She was otherwise optimized medically. We did get him a consumer educator for his diabetes we did adjust insulin regimen. He did have good response. He was also continued on antihypertensives for his hypertension. He did have some anemia likely of chronic disease but his CBC remained stable and we did monitor this. During his course of stay he did improve. The plan of care was discussed with the patient and patient did verbalizes understanding. On the day of discharge patient was in stable condition Discussed plan of care with Dr. Coronado Discharge process time greater than 30 minutes Home Meds Active Scripts Insulin Glargine* (Lantus*) 100 Unit/Ml Soln, 20 UNIT SC DAILY, #1 VIAL Prov:ROSSY HENDRIX 12/10/16 Insulin Aspart* (Novolog Insulin Pen*) 100 Unit/Ml Soln, 7 UNIT SC WITH MEALS for 30 Days Prov:ROSSY HENDRIX 12/09/16 Reported Medications Furosemide* (Furosemide*) 20 Mg Tablet, 20 MG PO BID, #30 TAB 12/08/16 Gabapentin* (Gabapentin*) 100 Mg Capsule, 100 MG PO BID, #90 CAP 12/08/16 Lisinopril* (Lisinopril*) 20 Mg Tablet, 20 MG PO DAILY, #30 TAB 12/08/16 Sevelamer Hcl* (Renagel*) 800 Mg Tablet, 800 MG PO WITH MEALS, TAB 12/08/16 Calcium Acetate (Calcium Acetate) 667 Mg Tablet, 667 MG PO WITH MEALS, #30 TAB 12/08/16 Calcium Acetate* (Calcium Acetate*) 667 Mg Capsule, 1334 MG PO WITH MEALS, #60 CAP 12/08/16 Nifedipine* (Nifedipine ER*) 30 Mg Tablet.sa, 30 MG PO DAILY, TAB.SA 12/08/16 Metoprolol Succinate* (Toprol XL*) 25 Mg Tab.sr.24h, 25 MG PO BID, #30 TAB 12/08/16 Primary Care Provider Not On Staff Doctor Time spent on discharge: > 30 minutes Pending Labs Laboratory Tests Test 12/09/16 17:13 12/09/16 20:05 12/10/16 08:32 12/10/16 12:36 Bedside Glucose 107mg/dL (70-220) 117mg/dL (70-220) 185mg/dL (70-220) 166mg/dL (70-220) ROSSY HENDRIX Dec 10, 2016 14:22
== END 2016-12-10 14:15 | disposition home or self-care (01) | DRG 640 ==
LOC: E/R 08:48 → MS4 11:04
PROVIDERS: ADMIT Internal Medicine; ATTEND Internal Medicine
PROC: 5A1D60Z (ICD-10-PCS; principal; 2016-12-08)
DX: E87.70 Fluid overload, unspecified (principal); J81.0 Acute pulmonary edema; I12.0 Hypertensive chronic kidney disease with stage 5 chronic kidney disease or end stage renal disease; E11.22 Type 2 diabetes mellitus with diabetic chronic kidney disease; N18.6 End stage renal disease; E11.65 Type 2 diabetes mellitus with hyperglycemia; E87.5 Hyperkalemia; D63.8 Anemia in other chronic diseases classified elsewhere; E78.5 Hyperlipidemia, unspecified; I25.10 Atherosclerotic heart disease of native coronary artery without angina pectoris; E66.9 Obesity, unspecified; E87.6 Hypokalemia; Z79.4 Long term (current) use of insulin; Z99.2 Dependence on renal dialysis; Z68.35 Body mass index [BMI] 35.0-35.9, adult; Z87.891 Personal history of nicotine dependence
CPT/HCPCS: 36415; 71010; 80048; 80053; 80061; 82962; 83036; 83735; 84100; 84436; 84443; 84479; 84484; 85025; 85610; 85730; 87081; 90935; 93005; 93306; 94644; 96374; C9113; J1815; J1940

== ENCOUNTER 2017-05-13 03:10 | Emergency (ER) | END 2017-05-13 16:10 | disposition home or self-care (01) ==

== ENCOUNTER 2017-09-24 02:18 | Inpatient (IN) | END 2017-09-25 20:15 | disposition home or self-care (01) | DRG 304 ==

== ENCOUNTER 2017-12-08 23:36 | Observation (INO) | END 2017-12-10 18:41 | disposition home or self-care (01) ==

== ENCOUNTER 2018-02-03 00:31 | Emergency (ER) | END 2018-02-03 02:49 | disposition home or self-care (01) ==

== ENCOUNTER 2018-07-20 23:20 | Emergency (ER) | payer OTHER ==
[~2018-07-20] VITALS: Ht 167.6 cm; Wt 96.4 kg
[~2018-07-20 23:20] MED LIST: CALC667C PO; CARV6.2579 PO; GABA100C14 PO; LANT3I SC; LISI-471 PO; NIFE30TA23 PO; SVL800C PO
[2018-07-20 23:32] VITALS: Ht 167.6 cm; Wt 96.4 kg
[2018-07-21] MEDS ORDERED: LORAZEPAM 2 MG INJ IV ONE (02:30)
--- NOTE | 2018-07-21 03:01 | ERD ---
ER Documentation Chief Complaint Chief Complaint chest pain x 4 hours HPI Is a 53-year-old male coming with chest pain for 4 hours. Denies any fevers chills nausea vomiting. Chest pain is mild to moderate intensity but he said he felt it was related to anxiety. Patient states his been very anxious lately and very short of breath because of it. He feels palpitations and perioral numbness. Also complains of carpal pedal spasms over the past 2 days on and off that seem to last for about 10-15 minutes at a time. ROS All systems reviewed and are negative except as per history of present illness. Medications Home Meds Active Scripts Carvedilol* (Carvedilol*) 6.25 Mg Tablet, 6.25 MG PO BID, #60 TAB Prov:RERE PACK BRICK WHEELER 09/25/17 Reported Medications Insulin Glargine* (Lantus*) 100 Unit/Ml Soln, 35 UNIT SC QHS, #1 VIAL 12/08/17 Gabapentin* (Gabapentin*) 100 Mg Capsule, 100 MG PO BID, #90 CAP 12/08/16 Lisinopril* (Lisinopril*) 20 Mg Tablet, 20 MG PO DAILY, #30 TAB 12/08/16 Sevelamer Hcl* (Renagel*) 800 Mg Tablet, 800 MG PO WITH MEALS, TAB 12/08/16 Calcium Acetate* (Calcium Acetate*) 667 Mg Capsule, 1334 MG PO WITH MEALS, #60 CAP 12/08/16 Nifedipine* (Nifedipine ER*) 30 Mg Tablet.sa, 30 MG PO DAILY, TAB.SA 12/08/16 Allergies Allergies: Coded Allergies: No Known Allergy (Unverified , 12/08/17) PMhx/Soc History of Surgery: Yes (AV FISTULA LEFT ARM, CATARACT SX) Anesthesia Reaction: No Hx Neurological Disorder: No Hx Respiratory Disorders: No Hx Cardiac Disorders: Yes (HTN) Hx Psychiatric Problems: No Hx Miscellaneous Medical Probl: Yes (DM, ESRD) Hx Alcohol Use: No Hx Substance Use: No Hx Tobacco Use: Yes (former smoker) Smoking Status: Former smoker Physical Exam Vitals Vital Signs Date Temp Pulse Resp B/P (MAP) Pulse Ox O2 O2 Flow FiO2 Time Delivery Rate 07/21/18 85 16 119/85 96 Nasal 2.0 02:25 (96) Cannula 07/21/18 90 18 125/71 88 Room Air 01:00 (89) Nasal Cannula 07/21/18 Nasal 2 01:00 Cannula 07/20/18 98.2 91 18 121/73 100 23:32 (89) Physical Exam Const: No acute distress Head: Atraumatic Eyes: Normal Conjunctiva ENT: Normal External Ears, Nose and Mouth. Neck: Full range of motion. No meningismus. Resp: Clear to auscultation bilaterally Cardio: Regular rate and rhythm, no murmurs Abd: Soft, non tender, non distended. Normal bowel sounds Skin: No petechiae or rashes Back: No midline or flank tenderness Ext: No cyanosis, or edema Neur: Awake and alert Psych: Normal Mood and Affect Result Diagram: 07/21/1812407/21/18124 Results 24 hrs Laboratory Tests Test 07/21/18 01:25 White Blood Count 6.6 10^3/ul Red Blood Count 4.34 10^6/ul Hemoglobin 12.9 g/dl Hematocrit 38.5 % Mean Corpuscular Volume 88.7 fl Mean Corpuscular Hemoglobin 29.7 pg Mean Corpuscular Hemoglobin Concent 33.5 g/dl Red Cell Distribution Width 14.1 % Platelet Count 211 10^3/UL Mean Platelet Volume 9.7 fl Immature Granulocytes % 0.300 % Neutrophils % 69.9 % Lymphocytes % 19.3 % Monocytes % 8.2 % Eosinophils % 1.5 % Basophils % 0.8 % Nucleated Red Blood Cells % 0.0 /100WBC Immature Granulocytes # 0.020 10^3/ul Neutrophils # 4.6 10^3/ul Lymphocytes # 1.3 10^3/ul Monocytes # 0.5 10^3/ul Eosinophils # 0.1 10^3/ul Basophils # 0.1 10^3/ul Nucleated Red Blood Cells # 0.0 10^3/ul Sodium Level 139 mmol/L Potassium Level 4.3 mmol/L Chloride Level 89 mmol/L Carbon Dioxide Level 32 mmol/L Anion Gap 18 Blood Urea Nitrogen 29 mg/dl Creatinine 9.11 mg/dl Est Glomerular Filtrat Rate mL/min 6 mL/min Glucose Level 260 mg/dl Calcium Level 9.4 mg/dl Total Bilirubin 0.1 mg/dl Direct Bilirubin 0.00 mg/dl Indirect Bilirubin 0.1 mg/dl Aspartate Amino Transf (AST/SGOT) 32 IU/L Alanine Aminotransferase (ALT/SGPT) 18 IU/L Alkaline Phosphatase 135 IU/L Troponin I < 0.012 ng/ml B-Type Natriuretic Peptide 2500 PG/ML Total Protein 9.1 g/dl Albumin 4.7 g/dl Globulin 4.40 g/dl Albumin/Globulin Ratio 1.06 Current Medications Medications Dose Sig/Inna Start Time Status Last (Trade) Ordered Route PRN Stop Time Admin Dose Reason Admin Lorazepam 1 mg ONCE ONCE 07/21/18 DC 07/21/18 (Ativan) IV 02:30 02:14 07/21/18 02:31 Procedures/MDM Emergency department course: Patient seen and evaluatedin bed from evaluation and intravenous access established was had a T score of 20 with complaints was examined. A stat cardiac workup he was given Ativan intravenously with good response and complete resolution of symptomology. Diagnostic data: EKG: Rate/Rhythm: [Normal Sinus Rhythm] QRS, ST, T-waves: [No changes consistent w/ acute ischemia] Impression: [No evidence of ischemia or arrhythmia] Chest X-ray 1V Interpreted by me: Soft Tissue: No acute abnormalities Bones: No acute abnormalities Mediastinum/Cardiac Silhouette/Lungs: [No acute abnormalities] Medical decision making: This is a very pleasant patient who comes in with atypical chest pain likely related to anxiety. At this point is clinically stable for outpatient management. I doubt cardiac issues, as the patient did respond well to Ativan and has been under a lot of stress lately. Given his negative workup in his observation time in the ER with complete resolution of symptomology with benzodiazepines and I feel the patient is stable for trial of outpatient management. Patient will be discharged home with a short course of Ativan. He is to follow-up immediately via 9 1 for any return of chest pain nausea vomiting fevers chills palpitations or shortness of breath. Departure Diagnosis: Primary Impression: Chest pain Chest pain type: unspecified Qualified Codes: R07.9 - Chest pain, unspecified Condition: Stable TATA GUAJARDO Jul 21, 2018 03:01
[2018-07-21] MEDS ORDERED: LORA-441 PO (03:02)
[2018-07-21 03:30] VITALS: BP 112/76; PULSE 93; RESP 21
== END 2018-07-21 03:42 | disposition home or self-care (01) ==
LOC: E/R 23:20
DX: R07.9 Chest pain, unspecified (principal); I12.0 Hypertensive chronic kidney disease with stage 5 chronic kidney disease or end stage renal disease; N18.6 End stage renal disease; E11.22 Type 2 diabetes mellitus with diabetic chronic kidney disease; Z87.891 Personal history of nicotine dependence; Z79.4 Long term (current) use of insulin
CPT/HCPCS: 71045; 80053; 83880; 84484; 85025; 93005; J2060; Z7610; 36415; 96374